=== PATIENT | female | born 1975 | race Two or more races ===

== ENCOUNTER 2021-03-18 21:11 | Day surgery (SDC) | payer OTHER ==
[~2021-03-18] VITALS: Ht 162.6 cm; Wt 54.0 kg
[2021-03-19] MEDS ORDERED: KETO10TA2 PO (08:59)
[2021-03-19] MEDS ORDERED: PERCOCET 5-3251 EACH PO (08:59)
[2021-03-19] MEDS ORDERED: NEURONTIN300 MG PO (09:01)
== END 2021-03-19 08:56 | disposition home or self-care (01) ==
LOC: CIR.AMB 21:11 → ER 21:11 → O/R 03-19 05:22 → SEC-K 03-19 05:22 → CIR.AMB 03-19 05:22 → ER 03-19 05:22 → CIR.AMB 03-19 05:22 → O/R 03-19 08:07 → SEC-K 03-19 08:07 → CIR.AMB 03-19 08:56 → EDSTATUS 03-19 11:15 → O/R 03-19 15:33
PROVIDERS: ATTEND Surgery
DX: K64.4 Residual hemorrhoidal skin tags (principal); K64.8 Other hemorrhoids; Z20.822 Contact with and (suspected) exposure to COVID-19

== ENCOUNTER 2021-03-26 06:18 | Inpatient (IN) | payer OTHER ==
[~2021-03-26] VITALS: Ht 160 cm; Wt 59.0 kg
[~2021-03-26 06:18] MED LIST: KETO10TA2 PO; NEURONTIN300 MG PO; PERCOCET 5-3251 EACH PO
== END 2021-03-28 21:06 | disposition home or self-care (01) | DRG 388 ==
LOC: ER 06:18 → SEC-K 10:33 → MEDJ 10:33 → O/R 16:26 → MEDJ 20:55 → SURH 03-27 22:50
PROVIDERS: ADMIT Surgery; ATTEND Surgery
DX: K56.41 Fecal impaction (principal); U07.1 COVID-19; K64.3 Fourth degree hemorrhoids